=== PATIENT | female | born 1975 | race Caucasian/White ===

== ENCOUNTER → 2016-05-06 | Outpatient (CLI) | payer OTHER ==
[~2016-05-06] MED LIST: CALCIUM 600 +1 EAC1 PO; MULTIVITAMINS1 EAC7 PO; VITAMIN B-12250 MCG PO
--- NOTE | ~2016-05-06 | EKG ---
[address] [place] [address] ELECTROCARDIOGRAM REPORT Name: GAIL SELF Room [facility]: [id number] Admission: 05/06/16 Attend Phys: Alex Burden MD, F Discharge: Date of : 71 Report #: [id number] THIS REPORT FOR: //name// 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
[2016-05-06 14:08] LABS: ABSOLUTE NEUTROPHILS 4.4 thou/uL (1.4-8.2); BASOPHILS 0.8 % (0.0-2.0); EOSINOPHILS 2.8 % (0.0-3.0); HEMATOCRIT 44.7 % (37.0-47.0); HEMOGLOBIN 15.3 gm/dL (12.0-15.0); LYMPHOCYTES 10.1 % (24.0-44.0); MCH 31.5 pg (26.0-34.0); MCHC 34.1 % (28.0-37.0); MCV 92.5 fL (80.0-100.0); MONOCYTES 8.2 % (1.0-8.0); PLATELET COUNT 232 thou/uL (150-400); POLYS 78.1 % (36.0-66.0); RBC 4.84 mil/uL (4.20-5.00); RDW 13.2 % (10.5-14.5); WBC 5.7 thou/uL (4.0-11.0)
[2016-05-06 14:14] LABS: MANUAL DIFF NO
[2016-05-06 14:26] LABS: CALCIUM 8.7 mg/dL (8.5-10.1); CREATININE 0.7 mg/dL (0.6-1.3); POTASSIUM 4.5 mmol/L (3.5-5.1)
[2016-05-06 14:28] LABS: LARGE PLATELETS FEW
[2016-05-06 14:32] LABS: ALBUMIN 3.9 g/dL (3.4-5.0); TOTAL BILIRUBIN 0.5 mg/dL (<0.1-1.0); TOTAL PROTEIN 7.3 g/dL (6.4-8.2)
== END ==
LOC: RAD 12:15
PROVIDERS: Surgery
DX: K21.9 Gastro-esophageal reflux disease without esophagitis (principal); E66.01 Morbid (severe) obesity due to excess calories; Z68.41 Body mass index [BMI] 40.0-44.9, adult

== ENCOUNTER → 2016-07-08 | Outpatient (CLI) | payer OTHER | LOC: ULTRA 09:13 | DX: K80.20 Calculus of gallbladder without cholecystitis without obstruction (principal); R10.9 Unspecified abdominal pain ==

== ENCOUNTER 2016-10-26 06:50 | Emergency (ER) | payer BC ==
[~2016-10-26] VITALS: Ht 167.6 cm; Wt 99.8 kg
[2016-10-26 07:04] LABS: ABSOLUTE NEUTROPHILS 5.1 thou/uL (1.4-8.2); BASOPHILS 0.4 % (0.0-2.0); EOSINOPHILS 2.9 % (0.0-3.0); HEMATOCRIT 50.3 % (37.0-47.0); HEMOGLOBIN 16.8 gm/dL (12.0-15.0); LYMPHOCYTES 15.9 % (24.0-44.0); MCH 32.4 pg (26.0-34.0); MCHC 33.4 g/dL (28.0-37.0); MCV 96.9 fL (80.0-100.0); MONOCYTES 8.8 % (1.0-8.0); PLATELET COUNT 201 thou/uL (150-400); RBC 5.19 mil/uL (4.20-5.00); RDW 13.1 % (10.5-14.5); WBC 7.1 thou/uL (4.0-11.0)
[2016-10-26 07:06] LABS: MANUAL DIFF NO
[2016-10-26 07:12] LABS: CALCIUM 8.7 mg/dL (8.5-10.1); CREATININE 0.7 mg/dL (0.6-1.0); POTASSIUM 3.8 mmol/L (3.5-5.1)
[2016-10-26] MEDS ORDERED: AUGMENTIN 875-1 EACH PO (09:19)
[2016-10-26] MEDS ORDERED: EPIPEN0.3 MG/0.1 IM (09:19)
[2016-10-26] MEDS ORDERED: DELTASONE20 MG PO (09:19)
== END 2016-10-26 09:58 | disposition home or self-care (01) ==
LOC: ER 06:50
PROVIDERS: Emergency Medicine
DX: K12.2 Cellulitis and abscess of mouth (principal); F10.99 Alcohol use, unspecified with unspecified alcohol-induced disorder; Z98.890 Other specified postprocedural states; Z87.891 Personal history of nicotine dependence

== ENCOUNTER 2016-12-02 09:25 | Emergency (ER) | payer OTHER ==
[~2016-12-02] VITALS: Ht 167.6 cm; Wt 99.8 kg
[~2016-12-02 09:25] MED LIST changes: +AUGMENTIN 875-1 EACH PO; +DELTASONE20 MG PO; +EPIPEN0.3 MG/0.1 IM
== END 2016-12-02 10:25 | disposition home or self-care (01) ==
LOC: ER 09:25
DX: S80.01XA Contusion of right knee, initial encounter (principal); F10.99 Alcohol use, unspecified with unspecified alcohol-induced disorder; Z90.89 Acquired absence of other organs; Z98.890 Other specified postprocedural states; Z87.891 Personal history of nicotine dependence; W16.812A Jumping or diving into other water striking water surface causing other injury, initial encounter; Y93.89 Activity, other specified; Y92.89 Other specified places as the place of occurrence of the external cause; Y99.8 Other external cause status